=== PATIENT | female | born 1940 | race Caucasian/White ===

== ENCOUNTER 2018-10-16 11:34 | Emergency (ER) | payer BC ==
[~2018-10-16] VITALS: Ht 165.1 cm; Wt 62.6 kg
--- NOTE | 2018-10-16 12:03 | NUR ---
Dr Pickett into eval patient
[2018-10-16] MEDS ORDERED: ACETAMINOPHEN 325 MG TABLET PO ONE (12:45)
[2018-10-16] MEDS ORDERED: ACETAMINOPHEN 325 MG TABLET ONE (12:47)
[2018-10-16 12:49] VITALS: BP 158/88
--- NOTE | 2018-10-16 12:49 | NUR ---
Patient discharged to home in stable conditon. Written and verbal after care instructions given. Patient verbalizes understanding of instructions. walked out of ER with no distress noted
== END 2018-10-16 12:50 | disposition home or self-care (01) ==
LOC: ER 11:34
DX: S13.4XXA Sprain of ligaments of cervical spine, initial encounter (principal); R51 Headache; V49.49XA Driver injured in collision with other motor vehicles in traffic accident, initial encounter; Y93.89 Activity, other specified; Y92.89 Other specified places as the place of occurrence of the external cause; Y99.8 Other external cause status
CPT/HCPCS: 70450; A4663